=== PATIENT | male | born 1985 | race American Indian/Alaskan Native ===

== ENCOUNTER 2018-01-13 00:43 | Emergency (ER) | payer BC ==
[2018-01-13 00:49] VITALS: BP 128/84
[2018-01-13] MEDS ORDERED: TORADOL ONE (01:01)
[2018-01-13] MEDS ORDERED: ZOFRAN ONE (01:01)
[2018-01-13] MEDS ORDERED: TORADOL IV ONE (01:18)
[2018-01-13] MEDS ORDERED: ZOFRAN IV ONE (01:18)
[2018-01-13 01:53] LABS: Basophils % (Auto) 0.4 % (0.0-1.8); Eosinophils # (Auto) 0.1 K/mm3 (0.0-0.4); Eosinophils % (Auto) 0.6 % (0.0-4.3); Hematocrit 36.9 % (35.5-45.6); Hemoglobin 12.6 gm/dl (11.8-15.2); Lymphocytes # (Auto) 3.8 K/mm3 (1.2-5.4); Lymphocytes % (Auto) 37.3 % (13.4-35.0); Mean Corpuscular HGB Conc 34 % (32-34); Mean Corpuscular Hemoglobin 29 pg (28-32); Mean Corpuscular Volume 86 fl (84-94); Monocytes # (Auto) 0.9 K/mm3 (0.0-0.8); Monocytes % (Auto) 8.6 % (0.0-7.3); Platelet Count 247 K/mm3 (140-440); Red Blood Count 4.32 M/mm3 (3.65-5.03)
[2018-01-13 02:06] LABS: Alanine Aminotransferase 23 units/L (7-56); Albumin 3.9 g/dL (3.9-5); BUN/Creatinine Ratio 13; Blood Urea Nitrogen 13 mg/dL (9-20); Calcium 8.9 mg/dL (8.4-10.2); Hemolysis Index 2
== END 2018-01-13 01:49 | disposition left against medical advice (07) ==
LOC: ED 00:43
DX: R10.9 Unspecified abdominal pain (principal); R11.2 Nausea with vomiting, unspecified; Z53.21 Procedure and treatment not carried out due to patient leaving prior to being seen by health care provider
CPT/HCPCS: 36415; 80053; 83690; 85025; 96374; 96375; J1885; J2405